=== PATIENT | male | born 1990 | race African-American/Black ===

== ENCOUNTER 2017-02-05 16:44 | Emergency (ER) | payer SELFPAY ==
[~2017-02-05] VITALS: Ht 193 cm; Wt 85.3 kg
[2017-02-05 16:50] VITALS: BP 149/91
[2017-02-05] MEDS ORDERED: NAPROXEN 500 MG TABLET PO STA (17:04)
[2017-02-05] MEDS ORDERED: CYCLOBENZAPRINE 10 MG TABLET. PO ONE (17:15)
[2017-02-05] MEDS ORDERED: HYDROcodone/APAP 5/325MG 1 TAB TABLET PO ONE (17:15)
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
--- NOTE | 2017-02-05 18:01 | RAD ---
Examination: CT lumbar spine without contrast HISTORY: History of severe low back pain, injury one week COMPARISON: None available TECHNIQUE: Axial CT images of the lumbar spine was performed without contrast. Coronal and sagittal reformats are performed Exposure: One or more of the following individualized dose reduction techniques were utilized for this examination: 1. Automated exposure control 2. Adjustment of the mA and/or kV according to patient size 3. Use of iterative reconstruction technique FINDINGS: The vertebral body heights are maintained. 5 lumbar vertebrae are assumed. The bilateral facets are well aligned. There is mild retrolisthesis of L5 on S1 measuring 5 mm. There is no acute fracture identified. Mild diffuse disc bulge identified at the L2-L3, L3-L4 and L4-L5 vertebral levels. There is mild to moderate disc bulge identified at L5-S1 vertebral level causing minimal anterior thecal sac impression. IMPRESSION: 1. No acute osseous findings. 2. Mild anterolisthesis of L5 on S1 with mild to moderate disc bulge identified at L5-S1 vertebral level causing mild anterior thecal sac impression. Mild multilevel minimal disc bulge identified. If pain persists follow-up MRI can be considered. Electronically signed by: Clifford Cisneros MD (02/05/2017 5:58 PM) [facility]
[2017-02-05] MEDS ORDERED: NAPR500T8 PO (18:14)
[2017-02-05] MEDS ORDERED: HYDR-971 PO (18:14)
[2017-02-05] MEDS ORDERED: CYCL10TA2 PO (18:14)
== END 2017-02-05 18:26 | disposition home or self-care (01) ==
LOC: ER 16:44
DX: M51.26 Other intervertebral disc displacement, lumbar region (principal); Y92.481 Parking lot as the place of occurrence of the external cause; V89.2XXA Person injured in unspecified motor-vehicle accident, traffic, initial encounter; Y93.89 Activity, other specified; Y99.8 Other external cause status
CPT/HCPCS: 72131; 99284-25